=== PATIENT | female | born 1940 | race Caucasian/White ===

== ENCOUNTER → 2016-10-17 | Outpatient (REF) | payer MEDICARE ==
[2016-10-17 14:32] LABS: RBC, URINE 0-1 /hpf (0-3)
[2016-10-17 14:33] LABS: WBC, URINE 0-1 /hpf (0-3)
[2016-10-17 14:35] LABS: BACTERIA, URINE NONE SEEN; CALCIUM OXALATE CRYSTALS,URINE MOD AMOUNT /hpf; MICROSCOPIC EXAM PERFORMED; SQUAMOUS EPITHELIAL CELL URINE NONE SEEN /hpf (SMALL AMT)
== END ==
LOC: M LAB REF 13:02
PROVIDERS: ATTEND Internal Medicine
DX: R31.9 Hematuria, unspecified (principal)

== ENCOUNTER → 2019-04-20 | Outpatient (REF) | payer MEDICARE | LOC: M LAB REF 17:18 | PROVIDERS: ATTEND Internal Medicine | DX: E03.9 Hypothyroidism, unspecified (principal) ==

== ENCOUNTER 2019-06-12 08:53 | Inpatient (IN) | payer MEDICARE ==
[2019-06-12] VITALS (41 sets, daily range): BP systolic 13–305; BP diastolic 13–304
[2019-06-12] MEDS ORDERED: ETOMIDATE INJ 20MG/10ML VIAL IV STA (09:00)
[2019-06-12] MEDS ORDERED: SUCCINYLCHOLINE INJ 200 MG/10 ML VIAL (J0330) IV STA (09:00)
[2019-06-12] MEDS ORDERED: PROPOFOL 200 MG/20 ML VIAL IV ONE (09:05)
[2019-06-12] MEDS: PROPOFOL 1,000 MG in IV 1 EA IV SCH ×3 (09:09→11:30)
[2019-06-12] MEDS ORDERED: ASPIRIN 81 MG CHEW TABLET PO ONE (09:15)
[2019-06-12] MEDS ORDERED: NS 1,000 ML IV ONE (09:15)
[2019-06-12 09:23] LABS: HEMATOCRIT 46.6 % (36.0-47.0); MEAN CORPUSCULAR HEMOGLOBIN 30.2 pg (27.0-33.0); MEAN CORPUSCULAR VOLUME 100.6 fl (80.0-96.0); RED BLOOD COUNT 4.63 10^6/uL (4.00-5.40); WHITE BLOOD COUNT 10.1 10^3/uL (4.0-10.0)
[2019-06-12] MEDS ORDERED: PROPOFOL 1,000 MG/100 ML VIAL As Ordered ONE (09:24)
--- NOTE | 2019-06-12 09:28 | REP ---
Portable chest x-ray: Single view. History: Intubation film. Comparison chest x-ray: September 14, 2007. Findings: Endotracheal tube is in good position at the level of the proximal clavicles. A multi lead pacemaker is seen in the right heart via the left side. There are two fractured leads involves the three in the subclavicular region. One of the fractured leads has retracted into the right ventricle and is seen with an additional loop in the right ventricle. The third lead remains intact. This appears to be the other right ventricular lead. Cardiomegaly is observed. This is moderate and new. Pleural angles are sharp. Aorta is tortuous. Impression: Endotracheal tube in good position. Moderate new cardiomegaly. The atrial and one of the ventricular cardiac pacemaker leads are fractured. One of the right ventricular cardiac leads has retracted and is looped upon itself in the right ventricle. Electronically Signed by Chito Traore MD 06/12/2019 09:20 A
[2019-06-12] MEDS ORDERED: NS 1,700 ML in IV 1 EA IV ONE (09:30)
[2019-06-12] MEDS ORDERED: PIPERACILLIN/TAZOBACTAM SOD 4.5 GM in D5W MINI-BAG PLUS 50 ML IV ONE (09:30)
[2019-06-12 09:43] LABS: ABG BASE EXCESS -18.2 (-2.0-2.0); ABG HCO3 9.2 MEQ/L (22.0-26.0); ABG O2 SATURATION 98.1 % (95.0-99.0); ABG PARTIAL PRESSURE CO2 27.6 mmHg (35.0-45.0); ABG PARTIAL PRESSURE O2 141.2 mmHg (75.0-100.0); ABG STANDARD HCO3 11.3 MEQ/L (22.0-26.0); ABG TOTAL CO2 10.1 MEQ/L (23.0-31.0)
[2019-06-12 09:43] LABS: PROTHROMBIN TIME 18.8 SECONDS (11.8-14.0)
[2019-06-12 09:44] LABS: PARTIAL THROMBOPLASTIN TIME 37.7 SECONDS (25.0-38.4)
[2019-06-12] MEDS ORDERED: PANTOPRAZOLE 40MG INJ (PROTONIX) (C9113) IV ONE (09:45)
[2019-06-12 09:46] LABS: ABG pH (ARTERIAL) 7.143 UNITS (7.350-7.450)
[2019-06-12 09:50] LABS: ALBUMIN 3.4 GM/DL (3.2-5.2); BILIRUBIN,DIRECT 0.5 MG/DL (0.0-0.2); BILIRUBIN,TOTAL 1.3 MG/DL (0.2-1.0); CALCIUM LEVEL 8.8 MG/DL (8.8-10.2); CK-MB VALUE MASS 3.9 NG/ML (<3.6); CREATININE FOR GFR 1.15 MG/DL (0.55-1.30); FREE T4 1.13 NG/DL (0.76-1.46); GLOMERULAR FILTRATION RATE 48.5 (>39); MB/CK RELATIVE INDEX 0.33 (< OR =4); POTASSIUM SERUM 4.5 MEQ/L (3.5-5.1); THYROID STIMULATING HORMONE 8.49 uIU/ML (0.358-3.740); TOTAL PROTEIN 6.9 GM/DL (6.4-8.2); TROPONIN I 1.09 NG/ML (< 0.10)
[2019-06-12 09:52] LABS: PLATELET COUNT, AUTOMATED 98 10^3/uL (150-450)
[2019-06-12 09:57] LABS: ATYPICAL LYMPH 2 % (0-5); EOSINOPHILS 1 % (0-3); LYMPHOCYTES 38 % (16-44); METAMYELOCYTES 1 % (0-0); MONOCYTES 5 % (0-5); NEUTROPHILS 48 % (28-66); PLATELET ESTIMATE DECREASED (NORMAL)
[2019-06-12 09:58] LABS: ANISOCYTOSIS 1+; POLYCHROMASIA 1+; TOXIC VACUOLATION 1+
[2019-06-12 10:00] LABS: MAGNESIUM LEVEL 2.8 MG/DL (1.8-2.4)
[2019-06-12] MEDS ORDERED: LIDOCAINE 2% 5ML JELLY UROJET TOP ONE (10:00)
[2019-06-12] MEDS ORDERED: VECURONIUM BROMIDE 10 MG VIAL IV ONE (10:00)
[2019-06-12] MEDS ORDERED: ACETAMINOPHEN 650 MG SUPP PR PRN (10:00)
[2019-06-12] MEDS ORDERED: ALEN70TA74 PO (10:16)
[2019-06-12 10:33] LABS: PHOSPHORUS LEVEL 5.8 MG/DL (2.5-4.9)
[2019-06-12] MEDS ORDERED: NOREPINEPHRINE 4 MG/4 ML AMP As Ordered ONE (11:08)
[2019-06-12 11:09] LABS: D-DIMER QUANT > 4000 ng/ml (<500)
[2019-06-12] MEDS: NOREPINEPHRINE BITARTRATE 8 MG in D5W 492 ML IV SCH ×4 (11:30→12:00)
[2019-06-12] MEDS: VECURONIUM BROMIDE 50 MG in D5W 50 ML IV SCH ×2 (12:00→12:03)
[2019-06-12] MEDS ORDERED: LACRILUBE (AKWA TEARS) OPHTH OINT 3.5 GM OU PRN (12:00)
--- NOTE | 2019-06-12 12:15 | REP ---
Portable chest x-ray: Single view. History: Central line placement. Findings: EKG monitoring electrodes overlie the chest. Nasogastric tube has been inserted into the gastric fundus. Endotracheal tube is seen in good position at the level of the transverse aorta. A right internal jugular central venous line is seen in place terminating in the expected location of the SVC. There is no evidence of pneumothorax. A multi lead pacemaker is again seen with fracture of two of its three leads as described previously. Impression: No pneumothorax seen. Right IJ line appears to be in the expected location of the SVC. NG tube and endotracheal tubes in good position. Cardiomegaly again noted. Electronically Signed by Chito Traore MD 06/12/2019 12:53 P
[2019-06-12] MEDS ORDERED: SODIUM BICARBONATE 4.2% INJ 10 ML SYRINGE IV STA (12:21)
[2019-06-12] MEDS ORDERED: PROPOFOL 1,000 MG in IV 1 EA IV SCH (13:00)
[2019-06-12] MEDS ORDERED: NOREPINEPHRINE BITARTRATE 8 MG in D5W 492 ML IV SCH (13:00)
[2019-06-12] MEDS ORDERED: fentaNYL CITRATE 1,000 MCG in NS 80 ML IV SCH (13:00)
[2019-06-12 13:06] LABS: ABG BASE EXCESS -17.9 (-2.0-2.0); ABG HCO3 6.3 MEQ/L (22.0-26.0); ABG O2 SATURATION 99.5 % (95.0-99.0); ABG PARTIAL PRESSURE O2 277.9 mmHg (75.0-100.0); ABG STANDARD HCO3 10.8 MEQ/L (22.0-26.0); ABG TOTAL CO2 6.7 MEQ/L (23.0-31.0); ABG pH (ARTERIAL) 7.325 UNITS (7.350-7.450)
[2019-06-12 13:08] LABS: ABG PARTIAL PRESSURE CO2 12.1 mmHg (35.0-45.0)
[2019-06-12] MEDS: CISATRACURIUM 200 MG in NS 480 ML IV SCH ×6 (13:52→15:00)
--- NOTE | 2019-06-12 14:24 | CR ---
DATE OF CONSULTATION: 06/12/2019 REFERRING PHYSICIAN: Dr. Damon INDICATION: Cardiac arrest. HISTORY OF PRESENT ILLNESS: Mrs. Mckinnon is previously unknown to me. She is a 79-year-old female who has been followed by my partner Dr. Connor. She presented to [facility] emergency room (ER) by ambulance after her called Emergency Medical Services (EMS) because she lost consciousness. Her is a frail man, but he is able to provide somewhat limited history. What we can gather is she has not been feeling well since . He felt that it was a consequence of eating some food in a diner. On Friday, she supposedly had intermittent vomiting of small amount and a lot of retching but not that much vomitus as he can recall. Then, this morning she apparently was trying to take a sip of water and then collapsed. He was able to hold her and let her slide on the ground. She at this point was still talking to him and trying to get up but at some point she lost consciousness. He called 911. On arrival of EMS, there was automatic defibrillator applied and shock was advised and delivered. When the graphic art sales representative arrived on the scene few minutes later, she was in pulseless electrical activity. She received epinephrine and had brief chest compressions. She was loaded to the ambulance and then developed sustained ventricular tachycardia that was terminated by two shocks and administration of amiodarone. On arrival to emergency room, she was in sinus rhythm with asynchronously ventricular paced rhythm. She was relatively hemodynamically stable with blood pressure in 90s and low 100s, and during her ER stay before I saw her and after I saw her there were no arrhythmias. The patient does not have any history of coronary artery disease. She had an echocardiogram in November 2018 that revealed preserved left ventricular systolic function. 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 The pacemaker was replaced in 2007 after there was malfunction of atrial lead. Surprisingly to me she was left with only ventricular pacemaker programed in the VVIR mode even though she remained in sinus rhythm. I interrogated the device in emergency room, and unfortunately, it is not programmed to store any arrhythmic events and consequently does not provide any information about the events of earlier today. She still has about a year and half of battery life safe and she is pacemaker dependent. Otherwise, past medical history is positive for hypertension, dyslipidemia and irritable bowel syndrome. According to her , she had a history of gastrointestinal (GI) bleeding that is rather remote. Surgical history is positive for pacemaker placement and then revision in 2005 and 2007, and right breast lumpectomy. SOCIAL HISTORY: The patient does not smoke, does not drink. She is . FAMILY HISTORY: No longer relevant. REVIEW OF SYSTEMS: Unobtainable. According to her , there were no unusual events until evening with GI symptoms. PHYSICAL EXAMINATION: The patient is intubated, sedated, certainly no communication possible. Blood pressure 126/49, heart rate 60 beats per minute with underlying sinus rhythm and asynchronously paced rhythm. Saturation 94% on 50% FiO2. Her jugular venous pulse (JVP) looks high. Lungs are clear to auscultation, though I do not appreciate any wheezing, crackles or rhonchi. Heart exam reveals regular rhythm. I do not appreciate any obvious murmur or gallop. Abdomen is soft. No guarding. Bowel sounds are present. Extremities are free of edema. Peripheral pulses are palpable. Neurologically, her pupils are constricted. I do not appreciate any obvious gag reflex. I did not test corneal reflex. Her extremities are rather flaccid LABORATORY: CBC reveals hemoglobin of 14.0, hematocrit 46, platelet count 98,000, and WBC count 10.1. Basic metabolic panel reveals sodium 136, potassium 4.5, BUN 41, creatinine 1.5, glucose 160, lactic acid 11, magnesium 2.8, AST 79, ALT 58, troponin 1.09. CK 1180, relative index 0.33, lipase 34. TSH 8.5. Urinalysis is positive for 2+ protein and 3+ blood. ASSESSMENT AND PLAN: Mrs. Mckinnon is a 79-year-old female without prior history of coronary artery disease or congestive heart failure, but with complete heart block and only ventricular paced rhythm who presented with ventricular tachycardia documented in the ambulance and probably ventricular fibrillation on arrival of EMT. It is unclear how long she was without effective cardiopulmonary resuscitation (CPR) prior to arrival of emergency room medical editor (EMT), but it is estimated approximately 10-15 minutes. Currently, she is hemodynamically stable. I spoke with Dr. Devine, who is going to be the admitting attending from critical care, and we plan to perform cooling protocol under her direction. From cardiac perspective, at this point I believe that the principal outcome will be dependent on neurologic function. I do not see any immediate indication for patient going to the shellfish processing laborer. She does have uninterpretable EKG due to underlying ventricular pacing and her troponin elevation that is fairly minimal and probably reflects the ventricular tachycardia and CPR. We will provide purely supportive therapy. She has coffee-ground material in her nasogastric (NG) tube and has low platelet count, and consequently, I believe that we should stay away from administration of anticoagulation until we can determine that her hemoglobin/hematocrit remain stable. I also will not administer any antiarrhythmics unless she has recurrent arrhythmias, at which point amiodarone will be administered. I spoke with her and [id number] and explained that unfortunately her prognosis is very poor, statistically speaking her chances of leaving hospital in favorable condition are less than 5%. I asked the family to consider if further resuscitative measures would be administered should she have any the decompensation. At this point, we will provide full support. RALF
[2019-06-12 14:52] LABS: ABG BASE EXCESS -20.8 (-2.0-2.0); ABG HCO3 4.8 MEQ/L (22.0-26.0); ABG O2 SATURATION 98.8 % (95.0-99.0); ABG PARTIAL PRESSURE O2 170.2 mmHg (75.0-100.0); ABG STANDARD HCO3 8.8 MEQ/L (22.0-26.0); ABG TOTAL CO2 5.2 MEQ/L (23.0-31.0)
[2019-06-12 14:56] LABS: ABG pH (ARTERIAL) 7.216 UNITS (7.350-7.450)
[2019-06-12 14:57] LABS: ABG PARTIAL PRESSURE CO2 12.2 mmHg (35.0-45.0)
[2019-06-12] MEDS ORDERED: CIPROFLOXACIN 400 MG in IV 1 EA IV SCH (15:30)
[2019-06-12 16:15] LABS: HEMOGLOBIN 15.2 g/dl (12.0-15.5); MEAN CORPUSCULAR HEMOGLOBIN 30.7 pg (27.0-33.0); MEAN CORPUSCULAR HGB CONC 30.4 g/dl (32.0-36.5); RED BLOOD COUNT 4.95 10^6/uL (4.00-5.40); WHITE BLOOD COUNT 22.5 10^3/uL (4.0-10.0)
[2019-06-12 16:26] LABS: INR 1.92; PROTHROMBIN TIME 21.7 SECONDS (11.8-14.0)
[2019-06-12 16:27] LABS: PARTIAL THROMBOPLASTIN TIME 42.9 SECONDS (25.0-38.4)
[2019-06-12 16:28] LABS: ALBUMIN 2.9 GM/DL (3.2-5.2); BILIRUBIN,TOTAL 2.5 MG/DL (0.2-1.0); CALCIUM LEVEL 8.1 MG/DL (8.8-10.2); CREATININE FOR GFR 1.79 MG/DL (0.55-1.30); GLOMERULAR FILTRATION RATE 29.1 (>39); MAGNESIUM LEVEL 2.8 MG/DL (1.8-2.4); POTASSIUM SERUM 4.5 MEQ/L (3.5-5.1); TOTAL PROTEIN 6.2 GM/DL (6.4-8.2)
[2019-06-12 16:34] LABS: PLATELET COUNT, AUTOMATED 93 10^3/uL (150-450)
[2019-06-12] MEDS ORDERED: SODIUM BICARBONATE 8.4% INJ 50 ML SYRINGE IV STA ×2 (16:41→19:00)
[2019-06-12 16:42] LABS: ABG O2 SATURATION 96.3 % (95.0-99.0); ABG PARTIAL PRESSURE O2 95.3 mmHg (75.0-100.0); ABG STANDARD HCO3 9.9 MEQ/L (22.0-26.0); ABG TOTAL CO2 7.7 MEQ/L (23.0-31.0)
[2019-06-12] MEDS ORDERED: SODIUM BICARBONATE 8.4% INJ 50 ML SYRINGE As Ordered ONE ×2 (16:46→16:55)
[2019-06-12 16:47] LABS: ABG pH (ARTERIAL) 7.127 UNITS (7.350-7.450)
[2019-06-12] MEDS ORDERED: VASOPRESSIN INJ 20 UNITS/ML VIAL As Ordered ONE (16:47)
--- NOTE | 2019-06-12 17:09 | CR ---
DATE OF CONSULTATION: 06/12/2019 STATUS OF PATIENT: Inpatient. REQUESTING PHYSICIAN: Dr. Devine REASON FOR CONSULTATION: Coffee-ground via nasogastric (NG) tube. HISTORY OF PRESENT ILLNESS: This is a 79-year-old female who presented to the emergency room status post cardiac arrest and resuscitated in the field and a history of recent gastrointestinal (GI) illness. During intubation she also had an NG tube placed, which drained coffee-ground type material. This history is mainly obtained from her , who is available at bedside, and from emergency room (ER)/ambulance notes. The patient apparently is a fairly healthy 79-year-old female with a past medical history only for a pacemaker placement in 2005. She has had breast surgery for a benign breast lesion several years ago and has had a colonoscopy in 2010. Her only medications on the chart are alendronate, and her confirms that she is fairly healthy overall. He states that on , or 2 days ago, with her friends and family, after which in the evening she developed an upset stomach and had several episodes of vomiting on evening and throughout Friday. This morning she was still not feeling well and actually collapsed on the kitchen floor, at which point 911 was called. There is no history of any diarrheal symptoms. There is no history of any fevers. There is no history of any chronic gastrointestinal (GI)illnesses. MEDICATIONS: Alendronate. ALLERGIES: No known drug allergies. MEDICAL HISTORY: 1. Irregular heartbeat and pacemaker placement 2005. 2. Breast surgery for benign breast lesion. 3. Routine colonoscopy in 2010. REVIEW OF SYSTEMS: Unobtainable. FAMILY HISTORY: Noncontributory. PHYSICAL EXAMINATION: Temperature 100.9, blood pressure 145/69, respiratory rate is 24 on ventilator. GENERAL: She is unresponsive. White female. Endotracheal and nasogastric tube in place. Gastric tube draining clear yellow-brown fluid with a few flecks of coffee-ground type material. HEAD, EYES, EARS, NOSE AND THROAT: Otherwise normal. CHEST: Coarse throughout, but no rhonchi or crackles definitely appreciated. HEART: Regular rate and rhythm. No murmurs. ABDOMEN: Soft, positive bowel sounds. EXTREMITIES: Negative for edema. IMPRESSION: 1. Nausea, vomiting times three days. Minor coffee-ground type material/hematin via nasogastric tube. 2. The patient is status post cardiac arrest, successfully resuscitated thus far. DISCUSSION: With a normal hemoglobin and only coffee-ground material present in her NG tube, the most likely scenario is that of erosive esophagitis caused by a 3-day stint of nausea and vomiting episodes prior to her cardiac arrest. At this time, her hemoglobin is stable, and there is no need for urgent endoscopy at this time. I would recommend the followin. Continue to monitor effluent from NG tube. 2. Proton pump inhibitor (PPI) should be given intravenous (IV) twice a day. 3. Monitor hemoglobin and hematocrit. [facility]
[2019-06-12] MEDS ORDERED: CIPROFLOXACIN 200 MG in IV 1 EA IV SCH (18:00)
[2019-06-12] MEDS ORDERED: DEXTROSE 50% 50 ML SYRINGE As Ordered ONE (18:04)
[2019-06-12] MEDS ORDERED: DEXTROSE 50% 50 ML SYRINGE IV STA (18:04)
--- NOTE | 2019-06-12 18:28 | HPE ---
DATE OF ADMISSION: 06/12/2019 CHIEF COMPLAINT: Cardiac arrest. HISTORY OF PRESENT ILLNESS: Ms. Mckinnon is a 79-year-old female with a past medical history of high-degree atrioventricular (AV) block and a complete heart block status post pacemaker, who presented to the emergency department (ED) with loss of consciousness. History was obtained from the patient's as well as collateral information, as she is intubated and unable to provide a history. As per the , the patient had come home on after she had been out eating in a diner and started complaining of some nausea and vomiting. The patient was concerned that she may have eaten some bad food when she was out. On Friday, she continued to have some intermittent vomiting and retching but did not report any episodes of melena or coffee-ground emesis. She had not reported any chest pain, shortness of breath, or difficulty breathing. Earlier this morning, she was attempting to go to the kitchen, when she became weak and collapsed. Patient's was able to slide her down to the floor, where she was initially talking to him and then becoming less responsive and appeared to have some gasping breaths. Then 911 was called, and initially the fire department arrived with automated external defibrillator (AED) , and the patient received two shocks, which were advised. Paramedics then arrived on scene, and she was in pulseless electrical activity (PEA) at that time. The patient received epinephrine and cardiopulmonary resuscitation (CPR) and was noted to be in ventricular tachycardia (VT ), for which she was delivered another two shocks as well as amiodarone. The patient achieved return of spontaneous circulation (ROSC) at that time with estimated 15-20 minutes before ROSC was achieved. In the ED, the patient was in sinus rhythm with a synchronously ventricular paced rhythm with a blood pressure that she was maintaining without the aid of vasopressors. She was minimally responsive, however, and was intubated in the ED. The patient also received broad-spectrum antibiotics in the ED and intravenous (IV) fluid boluses of NS at 30ml/kg. PAST MEDICAL/SURGICAL HISTORY: 1. Hypertension. 2. Hyperlipidemia. 3. Irritable bowel syndrome. 4. History of remote gastrointestinal (GI) bleed. 5. History of high-degree AV block and a complete heart block with pacemaker placement in 2005. The pacemaker was replaced in 2007 after there was a malfunction of an atrial lead. 6. Right breast lumpectomy. HOME MEDICATIONS: Alendronate, multivitamin supplement. ALLERGIES. No known drug allergies. SOCIAL HISTORY: Denies history of smoking or alcohol use. REVIEW SYSTEMS: Not able to be obtained, as the patient is intubated and unable to provide a history. PHYSICAL EXAMINATION: Maximal temperature 100.9, current temperature 96, pulse 60, blood pressure was 99/54, oxygen saturation was 94% on the ventilator. GENERAL: Patient is intubated and sedated on propofol. She is minimally responsive to painful stimulation and not following any commands. HEENT: Normocephalic, atraumatic. Pupils are small but reactive. Mucous membranes are moist. NECK: Supple. Trachea is midline. Evidence of jugular venous distention (JVD). Orogastric (OG) tube is in place draining some bilious output. CARDIAC: Regular rate and rhythm. No appreciable murmurs or gallops noted. LUNGS: Coarse ventilated breath sounds bilaterally but clear to auscultation with no significant wheezing, rales, or rhonchi. ABDOMEN: Soft, nontender, nondistended. LOWER EXTREMITIES: Cold. There is no significant lower extremity edema bilaterally. LABORATORY DATA: WBC 10.1, hemoglobin 14.0, platelets are 98. Chemistry: Sodium is 136, potassium 4.5, chloride 100, bicarbonate 15, BUN 41, creatinine is 1.16, glucose 160, lactic acid was 11.3. Total bilirubin was 1.3, AST 79, ALT 58, alkaline phosphatase is 109. TSH was 8.490, free T4 is 1.13. INR is 1.60. Troponin initial 1.09. BNP was 24,800. Initial ABG: A pH was 7.143, pCO2 of 27.6, pO2 of 141.2. Repeat ABG was pH of 7.325, pCO2 of 12.1, pO2 of 277.9. Urinalysis (UA) negative for nitrites and leukocyte esterase. No bacteria. IMAGING: Chest x-ray shows endotracheal tube in good position. There is cardiomegaly. The atrial and one of the ventricular cardiac pacemaker leads are fractured. One of the right ventricular cardiac leads has retracted and has looped upon itself in the right ventricle. There are no opacities noted in the lungs. ASSESSMENT AND PLAN: Ms. Mckinnon is a 79-year-old female with a history of complete heart block with only a ventricular paced rhythm, who presented with out of hospital cardiac arrest with what sounds to be a ventricular arrhythmia initially, which progressed to PEA and then was back in VT again. It is unclear how long the patient was without effective CPR prior to the arrival of the paramedics, as she was seen initially by fire fighters. On arrival of Emergency Medical Team (EMT), she was in PEA. It is estimated her ROSC from recreational director arrival was approximately 15-20 minutes. On arrival to the emergency department (ED), the patient was agonally breathing and was intubated. She was minimally responsive, not following commands. 1. Neurologic. The patient is a status post cardiac arrest. Post arrest Lizeth Coma Score (GSC) was less than 8 with a estimated ROSC of approximately 20 minutes. The patient has likely VT/ventricular fibrillation cardiac arrest. Therefore, will start her on hypothermia protocol. - Continue with hypothermia protocol as per intensive care unit (ICU). Will put target temperature at 36 degrees Celsius. - Will continue with propofol and fentanyl for sedation and analgesia as well as Nimbex for paralytic while on the hypothermia protocol. Will target a [place] of 5 with a [id number] of 2/4. - Discussed with the patient's and daughter at bedside that it is unclear if she has anoxic brain injury, but it is definitely in consideration, and that her prognosis with an out of hospital cardiac arrest is poor in terms of favorable outcome and recovery. Will continue to monitor, however, and will continue to address goals of care with the patient's family. After some discussion, they did elect to make the patient DO NOT RESUSCITATE at this time but no withdrawal of care. 2. Cardiovascular: A history of AV block and complete heart block with a pacemaker with a ventricularly paced rhythm. Presented with out of hospital cardiac arrest, likely ventricular fibrillation/VT. Post arrest, patient was initially maintaining a blood pressure, however, became hypotensive, requiring the administration of Levophed for vasopressor support. - Appreciate cardiology consult and recommendations. The patient has some elevated cardiac enzymes, likely due to her cardiac arrest. Given her thrombocytopenia, will hold off on anticoagulation for now but continue supportive measures. - If patient were to have another ventricular arrhythmia, would likely need amiodarone, as she appears to be ventricularly paced currently. - Will continue to monitor her cardiac enzymes. - Will get echo for evaluation. - The patient has lactic acidosis in the setting of her cardiac arrest as well as a possible sepsis. Will followup and continue to trend repeat lactate. - Continue with Levophed via a right internal jugular (IJ) triple lumen which was placed to maintain a mean arterial pressure (MAP) above 65. The patient has a left femoral arterial line, which was placed as well, for blood pressure monitoring and for frequent arterial blood gases (ABGs) while on hypothermia protocol. 3. Pulmonary: The patient has no previous history of any pulmonary disease. She was intubated after her cardiac arrest and is on mechanical ventilation. - Continue with mechanical ventilation with volume control mode with settings of 340/24/108. Will continue wean down her FiO2 as tolerated to maintain oxygen saturation above 90%. - Continue with ventilator bundle with head of bed elevation and chlorhexidine mouthwash. Continue with daily chest x-rays and ABGs while intubated. 4. Infectious disease (ID)/gastrointestinal (GI): The patient had symptoms of vomiting prior to her admission. She had reportedly ingested some questionable food. There is a question of a viral gastroenteritis versus a bacterial gastroenteritis. She did receive broad-spectrum antibiotics in the ED for possible sepsis with her leukocytosis and fever on admission. - There was question also of coffee-ground emesis. GI was consulted. Appreciate his recommendations and will continue with conservative management for now and with proton pump inhibitor (PPI) twice a day and monitoring her hemoglobin and hematocrit. - Will check a GI panel and continue with ciprofloxacin empirically for a possible bacterial gastroenteritis, although suspect most likely is a viral gastroenteritis. - Continue OG tube to low wall intermittent suction. - The patient had elevated transaminitis, likely in the setting of shock liver with her cardiac arrest. Will continue to trend liver function testing. 5. Renal/endocrine. The patient presented with acute kidney injury (DILLAN), likely in the setting of her cardiac arrest and shock. The patient has had decreasing urine output, and suspect that she is in acute tubular necrosis (ATN) from her shock and hypoperfusion. The patient also has persistent metabolic acidosis, for which we are attempting to compensate with the ventilator with a respiratory alkalosis. We will consult renal for further recommendations given her oliguria and acidosis with need for possible CVVHD - Patient is status post 1 ampule of bicarbonate in the ED and was given an additional amp of bicarbonate in the ICU for her worsening acidosis and hypotension. Her blood pressures did respond after the ampule of bicarbonate that she received in the ICU. - Will continue monitoring her ins and outs via [place]. - Patient's fingerstick glucoses have also been decreasing likely due to her liver dysfunction from her shock liver. Will start her on D5W and continue monitoring fingerstick glucose 6. Heme. The patient had some mild thrombocytopenia on admission. There was also question of coffee-ground emesis. Her hemoglobin did not require any transfusion. - Will keep an active type and screen and continue to monitor for signs of bleeding. - The patient had some coagulopathy with INR being elevated, likely in the setting of her liver dysfunction. - Will hold her heparin and continue with sequential compression devices (SCDs) for deep vein thrombosis (DVT) prophylaxis. Code status. After discussion with the patient's and her daughter, the decision was made for the patient the need to be DO NOT RESUSCITATE. They do not wish to withdraw any care at this time. Total critical air time spent, not including any procedures: Approximately 2 hours and 45 minutes. MTDD
[2019-06-12] MEDS ORDERED: HEPARIN 1,000 UNITS/ML 10ML VIAL (FOR RADIOLOGY& DIALYSIS ONLY) IV PRN (18:45)
[2019-06-12] MEDS ORDERED: D5W 1,000 ML IV SCH (19:00)
[2019-06-12] MEDS ORDERED: VASOPRESSIN INJ 20 UNITS in NS 499 ML IV SCH (20:00)
[2019-06-12 20:29] LABS: HEMATOCRIT 46.8 % (36.0-47.0); HEMOGLOBIN 13.8 g/dl (12.0-15.5); MEAN CORPUSCULAR HEMOGLOBIN 30.8 pg (27.0-33.0); MEAN CORPUSCULAR HGB CONC 29.5 g/dl (32.0-36.5); MEAN CORPUSCULAR VOLUME 104.5 fl (80.0-96.0); PLATELET COUNT, AUTOMATED 80 10^3/uL (150-450); RED BLOOD COUNT 4.48 10^6/uL (4.00-5.40); WHITE BLOOD COUNT 23.1 10^3/uL (4.0-10.0)
[2019-06-12] MEDS ORDERED: CISATRACURIUM 10MG/ML 20 ML VIAL As Ordered ONE (20:29)
[2019-06-12 20:39] LABS: INR 2.86; PROTHROMBIN TIME 29.9 SECONDS (11.8-14.0)
[2019-06-12 20:44] LABS: ABG BASE EXCESS -8.7 (-2.0-2.0); ABG HCO3 16.9 MEQ/L (22.0-26.0); ABG O2 SATURATION 94.4 % (95.0-99.0); ABG STANDARD HCO3 17.5 MEQ/L (22.0-26.0); ABG pH (ARTERIAL) 7.339 UNITS (7.350-7.450)
[2019-06-12] MEDS ORDERED: CISATRACURIUM 200 MG in NS 480 ML IV SCH ×4 (20:45)
[2019-06-12 20:51] LABS: ALBUMIN 2.3 GM/DL (3.2-5.2); BILIRUBIN,TOTAL 2.2 MG/DL (0.2-1.0); CALCIUM LEVEL 6.9 MG/DL (8.8-10.2); CREATININE FOR GFR 1.42 MG/DL (0.55-1.30); MAGNESIUM LEVEL 2.7 MG/DL (1.8-2.4); POTASSIUM SERUM 4.7 MEQ/L (3.5-5.1)
[2019-06-12] MEDS ORDERED: CHLORHEXIDINE GLUCONATE 0.12 % 15ML UDC (PERIDEX ORAL RINSE) MT SCH (21:00)
[2019-06-12] MEDS ORDERED: HYDROCORTISONE 100 MG/2 ML VIAL (J1720 PER 1) IV SCH (21:00)
[2019-06-12] MEDS ORDERED: PANTOPRAZOLE 40MG INJ (PROTONIX) (C9113) IV SCH (21:00)
[2019-06-12 21:21] LABS: PARTIAL THROMBOPLASTIN TIME > 240.0 SECONDS (25.0-38.4)
[2019-06-12] MEDS ORDERED: HEPARIN SOD (PORCINE) 5000 UNITS/ML VIAL SC SCH (22:00)
--- NOTE | 2019-06-12 22:09 | ECGEPIP ---
[facility] - ED Test Date: 2019-06-12 Pat Name: TEE [place] Department: Room: - Gender: Female Software Development Engineer: : [id number] Requested By: Rosamaria Shaw Order Number: [id number] Reading MD: Juan Bass Measurements Intervals [place] Rate: 60 P: TN: 0 QRS: -71 QRSD: 168 T: 103 QT: 438 QTc: 438 Interpretive Statements ELECTRONIC VENTRICULAR PACEMAKER Comparison tracing not on file Electronically Signed on 06-12-2019 22:08:43 EST by Juan Bass
--- NOTE | 2019-06-13 07:44 | RO ---
DATE OF PROCEDURE: 06/12/2019 INDICATION: Vasopressor administration. PREPROCEDURE DIAGNOSIS: Cardiac arrest and shock. POSTPROCEDURE DIAGNOSIS: Cardiac arrest and shock. PROCEDURE: Internal jugular central line. ATTENDING PHYSICIAN: Dr. Suki Devine CONSENT: The procedure was performed emergently and the permission was implied because of the emergent nature. PROCEDURE SUMMARY: A central line insertion practice form was completed by the intermittent civil process server. A time out was performed. Full sterile technique was maintained throughout the procedure, including surgical cap, mask, protective eye wear, full gown and sterile gloves. The patient was placed in Trendelenburg position. The right neck region was prepped using chlorhexidine scrub and draped in sterile fashion using a full drape and sterile probe cover employed. The right internal jugular vein was identified using the ultrasound. Using real time out of plane guidance, the introducer needle was inserted into the right internal jugular vein under direct ultrasound visualization. Venous blood was drawn. The syringe was removed and a guide wire was advanced into the introducer needle. The needle was removed over the guidewire and a small incision was made at skin surface with the scalpel and a dilator was exchanged over the guidewire. After appropriate dilation was obtained, the dilator was exchanged over the wire for a triple lumen central venous catheter. The wire was removed and the catheter was sutured in place at 17 cm. A sterile chlorhexidine impregnated dressing was placed over the catheter at the insertion site. The patient tolerated the procedure without any hemodynamic compromise. At time of procedure completion, all ports aspirated and flushed properly. A postprocedure chest x-ray shows the line in good position with no pneumothorax. [facility]ITAL[facility]
--- NOTE | 2019-06-13 07:49 | RO ---
DATE OF PROCEDURE: 06/12/2019 PROCEDURE: Femoral arterial line. INDICATION: Hemodynamic monitoring. PREPROCEDURE DIAGNOSIS: Cardiac arrest. POSTPROCEDURE DIAGNOSIS: Cardiac arrest. ATTENDING PHYSICIAN: Dr. Suki Devine CONSENT: Due to the emergent nature of the procedure, consent was implied. PROCEDURE SUMMARY: A time out was performed. Full sterile technique was maintained throughout the procedure including surgical cap, mask, protective eye wear, sterile gown and sterile gloves. The left inguinal region was prepped using chlorhexidine scrub and draped in a sterile fashion using a fenestrated drape and a sterile probe cover was employed. Using real time out of plane ultrasound guidance, the left femoral artery was identified and an introducer needle was inserted into the femoral artery. Arterial blood was withdrawn. The syringe was removed and a guidewire was advanced through the needle into the femoral artery. The needle was then exchanged over the wire for an arterial catheter. The wire was removed and the catheter was secured to skin using a suture. The patient tolerated procedure without any hemodynamic compromise. At time of procedure completion, the catheter was connected to the environmental monitoring specialist and calibrated with appropriate waveform and blood pressure tracing observed. Estimated blood loss is less than 5 mL. MTDD
--- NOTE | 2019-06-13 07:57 | RO ---
DATE OF PROCEDURE: 06/12/2019 INDICATION: Hemodialysis access. PREPROCEDURE DIAGNOSIS: Renal failure. POSTPROCEDURE DIAGNOSIS: Renal failure. ATTENDING PHYSICIAN: Suki Devine MD CONSENT: Consent was obtained from the patient's prior to the procedure. Indication, risks, and benefits were explained at length. PROCEDURE SUMMARY: A central line insertion practice form was completed by an independent observer. Time-out was performed. Full sterile technique was maintained throughout procedure including surgical cap, mask, protective eye, sterile gown and sterile gloves. The right inguinal region was prepped using chlorhexidine scrub and draped in a sterile fashion using a full drape and sterile probe cover was employed. The right femoral vein was identified using ultrasound and using real time out of plane ultrasound guidance. The introducer needle was inserted into the femoral vein. Venous blood was withdrawn. The syringe was removed and a guidewire was advanced into the introducer needle. The needle was removed over the guidewire and a small incision was made at skin surface with a scalpel. Double dilation was exchanged over the guidewire. After appropriate dilation was obtained, the dilator was exchanged over the wire for a double lumen hemodialysis catheter. The wire was removed in the catheter was sutured in place. A sterile chlorhexidine impregnated dressing was placed over the catheter insertion site. The patient tolerated the procedure without any hemodynamic compromise. At time of procedure completion, all ports were aspirated and flushed properly. Estimated blood loss is approximately 5 mL.
--- NOTE | 2019-06-13 10:33 | CR ---
DATE OF NEPHROLOGY CONSULTATION: 06/12/2019 REFERRING PHYSICIAN: Suki Devine MD REASON FOR CONSULTATION: Oliguric acute renal failure and severe metabolic acidosis in this lady with cardiac arrest. HISTORY OF PRESENT ILLNESS Mrs. 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 She presented to the emergency room via EMS today as she was noticed to have cardiac arrest at home. She was resuscitated, intubated and brought to the emergency room. She is now admitted to intensive care unit. She is currently on hypothermia protocol due to cardiac arrest and resuscitation. She has no urine output and has developed severe metabolic acidosis. She is hypotensive requiring pressors. A nephrology consultation was requested and the patient is seen this evening in intensive care unit. PAST MEDICAL AND SURGICAL HISTORY Significant for 1. Hypertension. 2. Hyperlipidemia. 3. Irritable bowel syndrome. 4 High degree AV block and a complete heart block, status post pacemaker placement. 5. History of right breast lumpectomy. HOME MEDICATIONS: She was on alendronate, multivitamins and no other known medications. ALLERGIES: She has NO KNOWN DRUG ALLERGIES. PERSONAL AND SOCIAL HISTORY The patient herself is not able to provide any information. At present, her family has already left. Apparently she has no history of smoking or alcohol use. She lives with her . FAMILY HISTORY: Noncontributory. REVIEW OF SYSTEMS The patient is unresponsive and currently intubated. Apparently she had vomiting for couple of days at home and was feeling weak. She collapsed this morning which was witnessed by her and EMS called. She was shocked at home and resuscitated and brought to emergency room. There did have some pulseless electrical activity and then ventricular tachycardia. In any event, she is currently unresponsive and unable to provide any information. PHYSICAL EXAMINATION Elderly lady intubated and unresponsive. She is currently on pressors and her blood pressure is about 116/58 mmHg. Respiratory rate is 24 per minute on the ventilator. Temperature is 92.4 degrees Fahrenheit and heart rate 65 per minute. Her head is atraumatic. Pupils are equal and reactive to light. Neck is supple and internal jugular vein central venous line is in place on the right side. Heart: Sounds are regular and lungs have good bilateral air entry. Abdomen is soft and bowel sounds present. Extremities: Without any cyanosis or clubbing. Neurologically, she is unresponsive. LABORATORY DATA WBC count 22.5, hemoglobin 15.2 and hematocrit 50.0. Platelets 93. Blood gas: Initial one showed a pH of 7.14, pCO2 27.6, pO2 141 and bicarb 11. Most recent one pH is 7.12, pCO2 21, pO2 95 and bicarb 9.9. Her chemistry showed a sodium level of 137, potassium 4.5, CO2 9, chloride 106, BUN 51 and creatinine 1.79. Glucose is 83 and a lactic acid level is up to 10.1. AST 179, ALT 105, alkaline phosphatase 119, total protein 6.2 and albumin 2.9. PROBLEMS 1. Oliguric acute renal failure. 2. Severe metabolic acidosis with lactic acidosis. 3. Status post cardiac arrest. Most likely her oliguric acute renal failure is related to cardiac arrest and prolonged hypoperfusion. Her blood pressure is now maintained on pressors. However, she has no urine output suggestive of acute tubular necrosis. She also has developed severe lactic acidosis and metabolic acidosis. The patient was given intravenous bicarb without any improvement in her pH. She is going to require urgent dialysis and in view of hypertension and requiring pressors, we will start her on CRRT. Dr. Devine has already discussed with the family and already placed the dialysis catheter in her right femoral vein. CRRT will be initiated as soon as possible. Her blood gas, chemistries and electrolytes will be repeated every 12 hours. Thank you for involving me in the care of Mrs. Mckinnon. I will follow her along with you.
--- NOTE | 2019-06-13 11:05 | ECHO ---
DATE OF STUDY: 06/12/2019 INDICATION: Cardiac arrest. HEIGHT: Not documented. WEIGHT: 56 kg. DIMENSIONS: IVS: 1.2 LV: 3.8 LVPW: 1.1 LA: 2.2 Aorta: 2.8 IVC: 2.4 FINDINGS: The study is of fair technical quality. The patient is in sinus rhythm with asynchronous ventricular pacing. Left ventricle is normal size. Borderline left ventricular hypertrophy (LVH) is noted. There is severe global hypokinesis, I estimate overall ejection fraction approximately 20%. The right ventricle appears dilated and hypokinetic. There is echo artifact apparent in the right atrium and right ventricle consistent with pacemaker leads. The left atrium appears markedly enlarged. Cardiac valves were poorly visualized. There are sclerotic abnormalities of aortic and mitral valves, but mobility seems preserved. Tricuspid valve appears normal. Pulmonic valve was not well seen. The inferior vena cava is markedly dilated and there is no appreciable collapse with inspiration indicative of very high central venous pressure. Aortic root is normal. Aortic arch also appears normal. Abdominal aorta was not seen. Doppler interrogation of aortic valve reveals no significant stenosis and approximately mild to moderate insufficiency. There is trace mitral insufficiency and severe tricuspid insufficiency likely related to pacemaker wires. Evaluation of diastolic function is inconclusive due to asynchronous ventricular pacing and lack of coordination between atrial and ventricular contraction. But tissue Doppler velocities of mitral annulus are very low and I consequently assume advanced diastolic dysfunction. CONCLUSIONS: 1. Study is of fair technical quality. The patient is in sinus rhythm with asynchronous ventricular pacing. 2. Normal LV size with borderline LVH and severe global hypokinesis, estimated EF in the neighborhood of 20%, likely advanced diastolic dysfunction. 3. [id number] aortic insufficiency. 4. Severe tricuspid insufficiency. 5. Very high central venous pressure. 6. At least mild pulmonary hypertension. COMMENT: Subacute bacterial endocarditis (SBE) prophylaxis is not recommended. Both ischemic and nonischemic etiology of cardiomyopathy is possible.
== END 2019-06-12 20:50 | disposition expired | DRG 296 ==
LOC: EDBD 08:53 → M ED 08:53 → M ED INP 11:52 → M ICU 12:56
PROVIDERS: ADMIT Internal Medicine Pulmonary Disease; ATTEND Internal Medicine Pulmonary Disease
PROC: 02HV33Z Insertion of Infusion Device into Superior Vena Cava, Percutaneous Approach (ICD-10-PCS; principal; 2019-06-12)
PROC: 04HY32Z Insertion of Monitoring Device into Lower Artery, Percutaneous Approach (ICD-10-PCS; 2019-06-12)
PROC: 06HM33Z Insertion of Infusion Device into Right Femoral Vein, Percutaneous Approach (ICD-10-PCS; 2019-06-12)
PROC: 5A1935Z Respiratory Ventilation, Less than 24 Consecutive Hours (ICD-10-PCS; 2019-06-12)
PROC: 0BH17EZ Insertion of Endotracheal Airway into Trachea, Via Natural or Artificial Opening (ICD-10-PCS; 2019-06-12)
DX: I46.9 Cardiac arrest, cause unspecified (principal); N17.0 Acute kidney failure with tubular necrosis; E87.4 Mixed disorder of acid-base balance; R57.9 Shock, unspecified; I44.2 Atrioventricular block, complete; I10 Essential (primary) hypertension; E78.5 Hyperlipidemia, unspecified; K20.8 Other esophagitis; A08.4 Viral intestinal infection, unspecified; K58.9 Irritable bowel syndrome, unspecified; Z66 Do not resuscitate; D69.6 Thrombocytopenia, unspecified; I47.2 Ventricular tachycardia; Z95.0 Presence of cardiac pacemaker; Z79.899 Other long term (current) drug therapy